=== PATIENT | female | born 1955 | race African-American/Black ===

== ENCOUNTER 2018-07-19 09:23 | Inpatient (IN) | payer MEDICARE, OTHER ==
[~2018-07-19] VITALS: Ht 160 cm; Wt 81.6 kg
[~2018-07-19 09:23] MED LIST: AMLODIPINE; DIAZ10TA; DIVA-78 PO; LORAZEPAM; METO-408 PO; OLMESARTAN; QUET300T2 PO; SERT100T12 PO; VICOT
[2018-07-19] MEDS ORDERED: HYDR-4065 PO (09:39)
[2018-07-19] MEDS ORDERED: ATEN25TA PO (09:39)
[2018-07-19] MEDS ORDERED: OXYC10 PO (09:39)
[2018-07-19] MEDS ORDERED: AMLO-511 PO (09:39)
[2018-07-19] MEDS ORDERED: LISI-660 PO (09:39)
[2018-07-19 12:02] LABS: EOSINOPHILS % (AUTO) 10.7 % (1.0-6.0); HEMATOCRIT 42.3 % (36-46); HEMOGLOBIN 14.1 g/dL (12.0-16.0); LYMPHOCYTES # (AUTO) 4.1 K/uL (1.0-4.8); LYMPHOCYTES % (AUTO) 51.9 % (22.0-44.0); MEAN CORPUSCULAR HEMOGLOBIN 31.6 pg (26.0-34.0); MEAN CORPUSCULAR HGB CONC 33.5 G/dL (31.0-37.0); MEAN CORPUSCULAR VOLUME 95 fL (80-100); MONOCYTES # (AUTO) 0.6 K/uL (0.1-1.0); MONOCYTES % (AUTO) 7.2 % (2.0-9.0); NEUTROPHILS # (AUTO) 2.3 K/uL (1.8-7.7); NEUTROPHILS % (AUTO) 29.2 % (40.0-70.0); PLATELET COUNT (AUTO) 148 K/uL (150-450); RED BLOOD CELL COUNT(AUTO) 4.47 MIL/uL (4.00-5.20); RED CELL DISTRIBUTION WIDTH 14.4 % (11.5-14.5)
[2018-07-19 12:09] LABS: ANION GAP 7 mmol/L (8-16); CALCIUM, TOTAL 8.7 mg/dL (8.8-10.5); CARBON DIOXIDE 27 mmol/L (22-29); CHLORIDE 105 mmol/L (98-107); GLOMERULAR FILTR. RATE CALC > 60 mL/min (>60); GLUCOSE,RANDOM 100 mg/dL (70-110); POTASSIUM 3.5 mmol/L (3.5-5.1); SODIUM SERUM 139 mmol/L (136-145); UREA NITROGEN, BLOOD 11 mg/dL (7-18)
[2018-07-19 12:17] LABS: APPEARANCE,URINE CLEAR (CLEAR); GLUCOSE, URINE (UA) NEGATIVE (NEGATIVE); KETONES,URINE NEGATIVE (NEGATIVE); LEUKOCYTE ESTERASE ,URINE NEGATIVE (NEGATIVE); NITRATE,URINE NEGATIVE (NEGATIVE); OCCULT BLOOD,URINE NEGATIVE (NEGATIVE); PH,URINE 5.5 (5.0-8.0); PROTEIN,URINE NEGATIVE (NEGATIVE)
[2018-07-19 12:22] LABS: BILIRUBIN,URINE PRELIM. POSITIVE (NEGATIVE)
[2018-07-19 12:27] LABS: ALANINE AMINOTRANSFERASE 99 U/L (12-78); ALBUMIN 3.3 g/dL (3.4-5.0); ALKALINE PHOSPHATASE 89 U/L (46-116); ASPARTATE AMINOTRANSFERASE 114 U/L (15-37); BILIRUBIN,TOTAL 0.4 mg/dL (0.1-1.0); LIPASE 378 U/L (73-393); TOTAL PROTEIN, SERUM 7.5 g/dL (6.4-8.2)
[2018-07-19 12:38] LABS: BACTERIA,URINE Rare /HPF (None Seen); RBC,URINE 0-2 /HPF (0-2); SQUAMOUS EPITHELIAL CELL,UR Rare /LPF (None Seen); WBC,URINE 0-2 /HPF (0-5)
[2018-07-19] MEDS ORDERED: ASPIRIN 81 MG CHEWABLE TABLET PO ONE (12:45)
[2018-07-19] MEDS ORDERED: NITROGLYCERIN 2% (1 GM=INCH) PACKET TP ONE (12:45)
[2018-07-19] MEDS ORDERED: OxyCODONE HCL/ACETAMINOPHEN 10-325 MG TABLET PO ONE (15:45)
[2018-07-19] MEDS ORDERED: CARISOPRODOL 350 MG TABLET PO ONE (15:45)
[2018-07-19] MEDS: LISINOPRIL 5 MG TABLET PO SCH (16:30)
[2018-07-19] MEDS: AmLODIPine BESYLATE 5 MG TABLET PO SCH (16:30)
[2018-07-19] MEDS: ATENOLOL 25 MG TABLET PO SCH (18:39)
[2018-07-19] MEDS: SERTRALINE HCL 100 MG TABLET PO SCH (18:39)
[2018-07-19] MEDS: OxyCODONE HCL 10 MG IR TABLET PO PRN (18:45)
[2018-07-19 18:52] VITALS: BP 112/74
[2018-07-19 19:43] VITALS: BP 114/78
[2018-07-19] MEDS ORDERED: MAGNESIUM SULFATE IV ONE (20:00)
[2018-07-19] MEDS ORDERED: [UNRECOGNIZED DRUG - OTHER] IV ONE (20:00)
[2018-07-19] MEDS ORDERED: THIAMINE HCL IV ONE (20:00)
[2018-07-19] MEDS ORDERED: HydrALAZINE HCL 20 MG/ML VIAL IVP PRN (20:00)
[2018-07-19] MEDS ORDERED: FOLIC ACID IV ONE (20:00)
[2018-07-19] MEDS: DIVALPROEX SODIUM 500 MG DR TABLET PO SCH (21:29)
[2018-07-19] MEDS: QUEtiapine FUMARATE 300 MG TABLET PO SCH (21:29)
[2018-07-19] MEDS ORDERED: CELECOXIB 200 MG CAPSULE PO SCH (22:00)
[2018-07-19] MEDS: CELECOXIB 200 MG CAPSULE PO SCH (23:02)
[2018-07-19] MEDS: OxyCODONE HCL 10 MG ER TABLET PO SCH (23:02)
[2018-07-19 23:54] VITALS: BP 101/59
[2018-07-20 04:34] VITALS: BP 103/57
[2018-07-20 07:53] LABS: CHOL/HDL RATIO 4.2 (3.9-5.7); MAGNESIUM 2.1 mg/dL (1.80-2.40)
[2018-07-20] MEDS: CELECOXIB 200 MG CAPSULE PO SCH ×2 (08:00→18:48)
[2018-07-20 08:19] VITALS: BP 101/71
[2018-07-20] MEDS: AmLODIPine BESYLATE 5 MG TABLET PO SCH (08:21)
[2018-07-20] MEDS: ATENOLOL 25 MG TABLET PO SCH (08:21)
[2018-07-20] MEDS: LISINOPRIL 5 MG TABLET PO SCH (08:21)
[2018-07-20] MEDS: SERTRALINE HCL 100 MG TABLET PO SCH (08:23)
[2018-07-20] MEDS: CARISOPRODOL 350 MG TABLET PO SCH ×4 (08:23→21:13)
[2018-07-20] MEDS: OxyCODONE HCL 10 MG ER TABLET PO SCH ×2 (08:23→21:00)
[2018-07-20 08:35] VITALS: BP 118/75
[2018-07-20] MEDS: OxyCODONE HCL 10 MG IR TABLET PO PRN (14:58)
[2018-07-20 15:51] VITALS: BP 142/95
[2018-07-20] MEDS: ENOXAPARIN SODIUM 30 MG/0.3 ML PF SYRINGE SQ SCH (18:49)
[2018-07-20 19:50] VITALS: BP 113/78
[2018-07-20] MEDS ORDERED: MELA1TAB17 PO (20:37)
[2018-07-20] MEDS ORDERED: QUET50TA PO (20:37)
[2018-07-20] MEDS ORDERED: OxyCODONE HCL 5 MG IR TABLET PO SCH (21:00)
[2018-07-20] MEDS: QUEtiapine FUMARATE 300 MG TABLET PO SCH (21:13)
[2018-07-20] MEDS: DIVALPROEX SODIUM 500 MG DR TABLET PO SCH (21:13)
[2018-07-20] MEDS: OxyCODONE HCL 5 MG IR TABLET PO SCH (21:14)
[2018-07-21] VITALS (7 sets, daily range): BP systolic 97–147; BP diastolic 55–82
[2018-07-21] MEDS: CELECOXIB 200 MG CAPSULE PO SCH ×2 (08:00→17:07)
[2018-07-21] MEDS: ENOXAPARIN SODIUM 30 MG/0.3 ML PF SYRINGE SQ SCH (08:20)
[2018-07-21] MEDS: CARISOPRODOL 350 MG TABLET PO SCH ×4 (08:20→21:35)
[2018-07-21] MEDS: SERTRALINE HCL 100 MG TABLET PO SCH (08:21)
[2018-07-21] MEDS: AmLODIPine BESYLATE 5 MG TABLET PO SCH (08:22)
[2018-07-21] MEDS: ATENOLOL 25 MG TABLET PO SCH (08:23)
[2018-07-21] MEDS: LISINOPRIL 5 MG TABLET PO SCH (08:23)
[2018-07-21] MEDS: OxyCODONE HCL 5 MG IR TABLET PO SCH ×4 (08:24→21:35)
[2018-07-21] MEDS: OxyCODONE HCL 10 MG ER TABLET PO SCH ×2 (08:25→21:35)
[2018-07-21] MEDS: FENOFIBRATE 48 MG TABLET PO SCH (18:06)
[2018-07-21] MEDS: DIVALPROEX SODIUM 500 MG DR TABLET PO SCH (21:35)
[2018-07-21] MEDS: QUEtiapine FUMARATE 300 MG TABLET PO SCH (21:35)
[2018-07-22 04:49] VITALS: BP 145/84
[2018-07-22] MEDS: CELECOXIB 200 MG CAPSULE PO SCH ×2 (08:00→18:19)
[2018-07-22 08:22] VITALS: BP 82/55
[2018-07-22] MEDS: FENOFIBRATE 48 MG TABLET PO SCH (08:34)
[2018-07-22] MEDS: AmLODIPine BESYLATE 5 MG TABLET PO SCH (08:41)
[2018-07-22] MEDS: LISINOPRIL 5 MG TABLET PO SCH (08:41)
[2018-07-22] MEDS: ATENOLOL 25 MG TABLET PO SCH (08:41)
[2018-07-22] MEDS: ENOXAPARIN SODIUM 30 MG/0.3 ML PF SYRINGE SQ SCH (08:44)
[2018-07-22] MEDS: SERTRALINE HCL 100 MG TABLET PO SCH (08:44)
[2018-07-22] MEDS: OxyCODONE HCL 5 MG IR TABLET PO SCH ×4 (09:00→21:04)
[2018-07-22] MEDS: CARISOPRODOL 350 MG TABLET PO SCH ×4 (09:00→21:04)
[2018-07-22] MEDS: OxyCODONE HCL 10 MG ER TABLET PO SCH ×3 (09:00→21:04)
[2018-07-22 11:37] VITALS: BP 91/57
[2018-07-22] MEDS ORDERED: HEPARIN SODIUM 1000 UNITS/NS 500 ML ONE (13:30)
[2018-07-22 15:50] VITALS: BP 110/80
[2018-07-22 20:35] VITALS: BP 105/72
[2018-07-22] MEDS: QUEtiapine FUMARATE 300 MG TABLET PO SCH (21:04)
[2018-07-22] MEDS: DIVALPROEX SODIUM 500 MG DR TABLET PO SCH (21:04)
[2018-07-23 00:45] VITALS: BP 100/59
[2018-07-23 05:13] VITALS: BP 122/73
[2018-07-23] MEDS ORDERED: CARI350 PO (07:12)
[2018-07-23] MEDS ORDERED: CELE200 PO (07:13)
[2018-07-23] MEDS ORDERED: FENO48TA15 PO (07:14)
[2018-07-23] MEDS ORDERED: OXYC5 PO (07:15)
[2018-07-23 07:26] VITALS: BP 111/74
[2018-07-23] MEDS: CELECOXIB 200 MG CAPSULE PO SCH (07:54)
[2018-07-23] MEDS: OxyCODONE HCL 5 MG IR TABLET PO SCH (07:55)
[2018-07-23] MEDS: OxyCODONE HCL 10 MG ER TABLET PO SCH (07:55)
[2018-07-23] MEDS: CARISOPRODOL 350 MG TABLET PO SCH (07:55)
[2018-07-23] MEDS: FENOFIBRATE 48 MG TABLET PO SCH (07:56)
[2018-07-23] MEDS: SERTRALINE HCL 100 MG TABLET PO SCH (07:57)
[2018-07-23] MEDS: ENOXAPARIN SODIUM 30 MG/0.3 ML PF SYRINGE SQ SCH (07:58)
[2018-07-23] MEDS: ATENOLOL 25 MG TABLET PO SCH (08:05)
[2018-07-23] MEDS: LISINOPRIL 5 MG TABLET PO SCH (08:05)
[2018-07-23] MEDS: AmLODIPine BESYLATE 5 MG TABLET PO SCH (08:05)
== END 2018-07-23 09:45 | disposition home or self-care (01) | DRG 313 ==
LOC: EMS 09:25 → 5S 16:10
PROVIDERS: ADMIT Internal Medicine; ATTEND Internal Medicine
DX: R07.89 Other chest pain (principal); F11.20 Opioid dependence, uncomplicated; G89.4 Chronic pain syndrome; M06.9 Rheumatoid arthritis, unspecified; F31.9 Bipolar disorder, unspecified; F20.9 Schizophrenia, unspecified; E78.1 Pure hyperglyceridemia; F41.1 Generalized anxiety disorder; I10 Essential (primary) hypertension; M79.7 Fibromyalgia; F17.210 Nicotine dependence, cigarettes, uncomplicated; M51.36 Other intervertebral disc degeneration, lumbar region; M62.838 Other muscle spasm; Z86.73 Personal history of transient ischemic attack (TIA), and cerebral infarction without residual deficits; Z88.5 Allergy status to narcotic agent; Z79.899 Other long term (current) drug therapy
CPT/HCPCS: 70450; 83735; 84100; 93005; 97162; G0378; J1644; J1650; J3411; J3475; J3490; J7030